=== PATIENT | female | born 1985 | race African-American/Black ===

== ENCOUNTER 2016-08-04 17:48 | Inpatient (IN) | payer OTHER ==
[~2016-08-04] VITALS: Ht 172.7 cm; Wt 101.1 kg
[~2016-08-04 17:48] MED LIST: CHILDREN'S100 MG/5 M PO; IRON325 M1 PO; NO MEDS; NOHOMEMEDS
[2016-08-04 19:16] LABS: INFLUENZA A VIRAL ANTIGEN NEGATIVE; INFLUENZA B VIRAL ANTIGEN NEGATIVE
[2016-08-04 19:56] LABS: HEMATOCRIT 33.9 % (36.0-46.0); MCH 25.5 PG (29.0-34.0); MCV 82.3 FL (83-99); MEAN PLAT.VOLUME 10.1 uM^3 (9.5-12.4); PLATELET COUNT 551 K/uL (156-360); RBC DIS.WIDTH-CV 16.6 % (11.8-14.6); RBC DIS.WIDTH-SD 49.4 % (39-53); RED BLOOD COUNT 4.12 M/uL (3.80-5.20); WHITE BLOOD COUNT 11.8 K/uL (4.1-10.2)
[2016-08-04 19:59] LABS: EOSINOPHIL COUNT 0.2 K/uL (0-0.3); IMMATURE GRANULOCYTE (%) 0.2 % (0.0-0.7); IMMATURE GRANULOCYTE COUNT 0.2 K/uL; LYMPHOCYTE COUNT 1.9 K/uL (1.0-2.8); MONOCYTE (%) 4.9 % (3-12); MONOCYTE COUNT 0.6 K/uL (0-0.8); NEUTROPHIL (%) 76.4 % (45-76)
[2016-08-04 20:09] LABS: D-DIMER ELISA 1.56 mg/L FEU (< 0.57)
[2016-08-04 20:11] LABS: CHLORIDE 111 mEq/L (99-109); POTASSIUM 3.9 mEq/L (3.7-5.4); SODIUM 141 mEq/L (136-147)
[2016-08-04 20:13] LABS: GLUCOSE 118 mg/dL (70-99)
[2016-08-04 20:14] LABS: ANION GAP 7 MEQ/L (2-14)
[2016-08-04 20:17] LABS: GFR ESTIMATE (CALCULATED) > 59 mL/min/; UREA NITROGEN (BUN) 9 mg/dL (9-23)
[2016-08-04 20:25] LABS: QUANTITATIVE HCG < 4.0 MIU/ML
[2016-08-05 01:24] LABS: TROP-I INTERPRETATION NEGATIVE; TROPONIN-I < 0.01 ng/mL (0.0-0.30)
[2016-08-05 03:36] LABS: AMPHETAMINES QUANT VALUE 0 NG/ML; BARBITUATES QUANT VALUE 0 NG/ML; BENZODIAZEPINES QUANT VALUE 0 NG/ML; BENZODIAZEPINES, URINE SCREEN Negative (200 ng/mL); OPIATES QUANTITATIVE VALUE 0 NG/ML; PHENCYCLIDINE QUANT VALUE 0 NG/ML
[2016-08-05 08:01] LABS: INTERNAL CONTROL VALID? YES
[2016-08-05 08:36] LABS: IRON 28 MCG/DL (35-150)
[2016-08-05 08:39] VITALS: BP 110/81
[2016-08-05 08:56] LABS: ANION GAP 8 MEQ/L (2-14); CHLORIDE 109 MEQ/L (99-109); GFR ESTIMATE (CALCULATED) > 59 mL/min/; GLUCOSE 117 mg/dL (70-99); POTASSIUM 4.3 MEQ/L (3.7-5.4); SAMPLE HEMOLYSIS CHECK 0; SAMPLE ICTERIC CHECK 0; SAMPLE LIPEMIA CHECK 0; SODIUM 141 MEQ/L (136-147); UREA NITROGEN (BUN) 10 mg/dL (9-23)
[2016-08-05 09:02] LABS: TROP-I INTERPRETATION NEGATIVE; TROPONIN-I < 0.01 ng/mL (0.0-0.30)
[2016-08-05 09:09] LABS: EOSINOPHIL (%) 0 % (0-5); HEMATOCRIT 33.5 % (36.0-46.0); IMMATURE GRANULOCYTE (%) 0.1 % (0.0-0.7); LYMPHOCYTE COUNT 0.5 K/uL (1.0-2.8); MCH 25.8 PG (29.0-34.0); MCV 83.1 FL (83-99); MEAN PLAT.VOLUME 10.9 uM^3 (9.5-12.4); MONOCYTE (%) 0.6 % (3-12); NEUTROPHIL (%) 92.4 % (45-76); NEUTROPHIL COUNT 6.2 K/uL (1.8-6.4); PLATELET COUNT 524 K/uL (156-360); RBC DIS.WIDTH-CV 16.9 % (11.8-14.6); RBC DIS.WIDTH-SD 51.6 % (39-53); RED BLOOD COUNT 4.03 M/uL (3.80-5.20)
[2016-08-05 09:10] LABS: WHITE BLOOD COUNT 6.7 K/uL (4.1-10.2)
[2016-08-05 09:45] LABS: FERRITIN 12 NG/ML (10-291)
[2016-08-05 11:51] VITALS: BP 119/83
[2016-08-05 13:12] LABS: TROP-I INTERPRETATION NEGATIVE; TROPONIN-I < 0.01 ng/mL (0.0-0.30)
[2016-08-05 15:39] VITALS: BP 120/77
[2016-08-05 20:00] VITALS: BP 120/75
[2016-08-06 00:07] VITALS: BP 107/61
[2016-08-06 04:00] VITALS: BP 122/74
[2016-08-06 07:43] VITALS: BP 107/53
[2016-08-06 08:40] LABS: HEMATOCRIT 29.5 % (36.0-46.0); MCH 25.9 PG (29.0-34.0); MCHC 30.8 G/DL (30.0-36.0); MEAN PLAT.VOLUME 10.4 uM^3 (9.5-12.4); PLATELET COUNT 425 K/uL (156-360); RBC DIS.WIDTH-CV 17.7 % (11.8-14.6); RBC DIS.WIDTH-SD 54.7 % (39-53); RED BLOOD COUNT 3.51 M/uL (3.80-5.20)
[2016-08-06 08:51] LABS: WHITE BLOOD COUNT 9.4 K/uL (4.1-10.2)
[2016-08-06 11:41] VITALS: BP 117/69
[2016-08-06 15:18] VITALS: BP 120/70
[2016-08-06 20:00] VITALS: BP 100/61
[2016-08-07] VITALS (7 sets, daily range): BP systolic 85–112; BP diastolic 51–70
[2016-08-07 04:07] LABS: HEMATOCRIT 35.3 % (36.0-46.0); MCH 25.2 PG (29.0-34.0); MCV 83.8 FL (83-99); MEAN PLAT.VOLUME 10.1 uM^3 (9.5-12.4); PLATELET COUNT 532 K/uL (156-360); RBC DIS.WIDTH-CV 17.2 % (11.8-14.6); RBC DIS.WIDTH-SD 52.3 % (39-53); RED BLOOD COUNT 4.21 M/uL (3.80-5.20); WHITE BLOOD COUNT 9.4 K/uL (4.1-10.2)
[2016-08-07] MEDS ORDERED: PERCOCET 5/31 TABLET PO (11:52)
[2016-08-07] MEDS ORDERED: VALACYCLOVIR (11:53)
[2016-08-08] VITALS: BP 101/67
[2016-08-08 04:00] VITALS: BP 120/78
[2016-08-08 07:38] LABS: HEMATOCRIT 33.5 % (36.0-46.0); MCH 26.1 PG (29.0-34.0); MEAN PLAT.VOLUME 10.1 uM^3 (9.5-12.4); PLATELET COUNT 425 K/uL (156-360); RBC DIS.WIDTH-CV 17.2 % (11.8-14.6); RBC DIS.WIDTH-SD 52.2 % (39-53); RED BLOOD COUNT 3.99 M/uL (3.80-5.20); WHITE BLOOD COUNT 8.5 K/uL (4.1-10.2)
[2016-08-08 08:32] VITALS: BP 85/54
[2016-08-08 09:19] LABS: ANION GAP 6 MEQ/L (2-14); CHLORIDE 106 MEQ/L (99-109); GFR ESTIMATE (CALCULATED) > 59 mL/min/; GLUCOSE 95 mg/dL (70-99); POTASSIUM 4.4 MEQ/L (3.7-5.4); SAMPLE HEMOLYSIS CHECK 0; SAMPLE ICTERIC CHECK 0; SAMPLE LIPEMIA CHECK 0; SODIUM 139 MEQ/L (136-147); UREA NITROGEN (BUN) 20 mg/dL (9-23)
[2016-08-08 12:07] VITALS: BP 108/65
[2016-08-08] MEDS ORDERED: FERROUS SULFAT325 MG PO (13:15)
[2016-08-08] MEDS ORDERED: ENTRESTO 24 MG1 EACH PO (13:15)
[2016-08-08] MEDS ORDERED: CARVEDILOL3.125 MG PO (13:15)
[2016-08-08] MEDS ORDERED: AUGMENTIN875 MG PO (13:18)
[2016-08-08] MEDS ORDERED: AUGMENTIN600 MG/5 M PO (13:49)
== END 2016-08-08 14:57 | disposition home or self-care (01) | DRG 871 ==
LOC: EME 17:48 → EDOF 08-05 00:13 → 5SOUTH 08-05 00:13
PROVIDERS: Hospitalist; Internal Medicine; Physician Assistant; Physician Assistant Medical
DX: A41.9 Sepsis, unspecified organism (principal); J18.9 Pneumonia, unspecified organism; F14.10 Cocaine abuse, uncomplicated; D47.3 Essential (hemorrhagic) thrombocythemia; F17.200 Nicotine dependence, unspecified, uncomplicated; E66.9 Obesity, unspecified; D50.9 Iron deficiency anemia, unspecified; O90.3 Peripartum cardiomyopathy; Z68.33 Body mass index [BMI] 33.0-33.9, adult; I08.1 Rheumatic disorders of both mitral and tricuspid valves; I50.21 Acute systolic (congestive) heart failure
CPT/HCPCS: 71010; 71020; 71275; 80048; 80306 90; 82728; 83540; 83605; 83880; 84466; 84484; 84702; 85025; 85027; 85379; 87040; 87070; 87205; 87449; 87502; 93005; 93306; 94640; 94640 76; 99202; 99281; 99285; J0456; J0696; J1644; J1940; J2930; J7030; J7050

== ENCOUNTER 2016-08-20 01:27 | Inpatient (IN) | payer OTHER ==
[~2016-08-20] VITALS: Ht 172.7 cm; Wt 111.4 kg
[~2016-08-20 01:27] MED LIST changes: +AUGMENTIN600 MG/5 M PO; +AUGMENTIN875 MG PO; +CARVEDILOL3.125 MG PO; +ENTRESTO 24 MG1 EACH PO; +FERROUS SULFAT325 MG PO; +PERCOCET 5/31 TABLET PO; +VALACYCLOVIR
[2016-08-20 02:05] LABS: HEMATOCRIT 29.8 % (36.0-46.0); MCH 25.8 PG (29.0-34.0); MCHC 30.2 G/DL (30.0-36.0); MCV 85.4 FL (83-99); PLATELET COUNT 322 K/uL (156-360); RBC DIS.WIDTH-CV 17.6 % (11.8-14.6); RED BLOOD COUNT 3.49 M/uL (3.80-5.20)
[2016-08-20 02:17] LABS: CHLORIDE 109 mEq/L (99-109); SODIUM 140 mEq/L (136-147)
[2016-08-20 02:19] LABS: GLUCOSE 104 mg/dL (70-99)
[2016-08-20 02:20] LABS: ANION GAP 6 MEQ/L (2-14)
[2016-08-20 02:21] LABS: TOTAL BILIRUBIN 0.2 mg/dL (0.0-1.0)
[2016-08-20 02:22] LABS: ALKALINE PHOSPHATASE 97 IU/L (3-129)
[2016-08-20 02:23] LABS: GFR ESTIMATE (CALCULATED) > 59 mL/min/
[2016-08-20 02:24] LABS: UREA NITROGEN (BUN) 19 mg/dL (9-23)
[2016-08-20 02:26] LABS: TROP-I INTERPRETATION NEGATIVE; TROPONIN-I < 0.01 ng/mL (0.0-0.30)
[2016-08-20] MEDS ORDERED: PERCOCET 5/31 TABLET PO (03:53)
[2016-08-20 04:15] LABS: ADD MIUA? NO; BILIRUBIN NEGATIVE; BLOOD NEGATIVE; COLOR YELLOW ((YELLOW)); GLUCOSE (STRIP) NEGATIVE; KETONES NEGATIVE; LEUKOCYTES NEGATIVE; NITRITE NEGATIVE; PROTEIN (STRIP) NEGATIVE; SPECIFIC GRAVITY 1.018 (1.000-1.030); UCUL ADDED? NO; UROBILINOGEN 0.2 MG/DL (0.2-1.0)
[2016-08-20 04:23] LABS: AMPHETAMINE NEGATIVE (500 ng/mL); BARBITURATES NEGATIVE (200 ng/mL); BENZODIAZEPINES NEGATIVE (150 ng/mL); COCAINE NEGATIVE (150 ng/mL); INTERNAL CONTROLS VALID? YES; METHADONE NEGATIVE (200 ng/mL); METHAMPHETAMINE NEGATIVE (500 ng/mL); OPIATES (MORPHINE) NEGATIVE (100 ng/mL); OXYCODONE PRESUMPTIVE POSITIVE (100 ng/mL); PHENCYCLIDINE NEGATIVE (25 ng/mL); PROPOXYPHENE NEGATIVE (300 ng/mL); THC CANNABINOIDS NEGATIVE (50 ng/mL); TRICYCLIC ANTIDEPRESSANTS NEGATIVE (300 ng/mL)
[2016-08-20 04:58] VITALS: BP 107/66
[2016-08-20 08:10] VITALS: BP 94/60
[2016-08-20 16:03] VITALS: BP 109/70
[2016-08-20 20:30] VITALS: BP 93/57
[2016-08-20 23:46] VITALS: BP 80/46
[2016-08-21 05:46] LABS: HEMATOCRIT 32.6 % (36.0-46.0); MCH 25.3 PG (29.0-34.0); MCHC 30.1 G/DL (30.0-36.0); MCV 84.2 FL (83-99); MEAN PLAT.VOLUME 9.9 uM^3 (9.5-12.4); PLATELET COUNT 284 K/uL (156-360); RBC DIS.WIDTH-CV 17.6 % (11.8-14.6); RED BLOOD COUNT 3.87 M/uL (3.80-5.20); WHITE BLOOD COUNT 6.2 K/uL (4.1-10.2)
[2016-08-21 06:11] LABS: ANION GAP 7 MEQ/L (2-14); CHLORIDE 108 MEQ/L (99-109); GFR ESTIMATE (CALCULATED) > 59 mL/min/; GLUCOSE 84 mg/dL (70-99); MAGNESIUM 1.8 mg/dl (1.3-2.7); SAMPLE HEMOLYSIS CHECK 0; SAMPLE ICTERIC CHECK 0; SAMPLE LIPEMIA CHECK 0; SODIUM 140 MEQ/L (136-147); UREA NITROGEN (BUN) 15 mg/dL (9-23)
[2016-08-21 08:18] VITALS: BP 97/55
[2016-08-21] MEDS ORDERED: ENTRESTO 24 MG1 EACH PO (10:31)
[2016-08-21] MEDS ORDERED: VALTREX50 MG/ML PO (10:32)
[2016-08-21 11:14] VITALS: BP 98/57
[2016-08-21] MEDS ORDERED: LISINOPRIL2.5 MG PO (13:33)
[2016-08-21] MEDS ORDERED: FUROSEMIDE20 MG PO (13:33)
== END 2016-08-21 15:38 | disposition home health service (06) | DRG 776 ==
LOC: EME 01:27 → 3EAST 03:21 → EDOF 03:21 → 3EAST 04:46
PROVIDERS: Internal Medicine; Physician Assistant
DX: O99.43 Diseases of the circulatory system complicating the puerperium (principal); I42.0 Dilated cardiomyopathy; I27.2 Other secondary pulmonary hypertension; I50.9 Heart failure, unspecified; O90.89 Other complications of the puerperium, not elsewhere classified; O99.215 Obesity complicating the puerperium; E66.9 Obesity, unspecified; Z68.37 Body mass index [BMI] 37.0-37.9, adult; O99.335 Smoking (tobacco) complicating the puerperium; O9A.23 Injury, poisoning and certain other consequences of external causes complicating the puerperium; T50.996A Underdosing of other drugs, medicaments and biological substances, initial encounter; Z91.120 Patient's intentional underdosing of medication regimen due to financial hardship; F17.210 Nicotine dependence, cigarettes, uncomplicated
CPT/HCPCS: 71020; 80048; 80053; 81003; 83735; 83880; 84484; 85027; 93005; 99281; 99285; J1940

== ENCOUNTER 2016-09-30 14:38 | Emergency (ER) | payer OTHER ==
[~2016-09-30] VITALS: Ht 170.2 cm; Wt 108.8 kg
[~2016-09-30 14:38] MED LIST changes: +FUROSEMIDE20 MG PO; +LISINOPRIL2.5 MG PO; +VALTREX50 MG/ML PO
[2016-09-30] MEDS ORDERED: NAPROSYN500 MG PO (15:21)
[2016-09-30] MEDS ORDERED: PEN-VEE K,VEET500 MG PO (15:21)
[2016-09-30 15:47] VITALS: BP 116/73
== END 2016-09-30 15:48 | disposition home or self-care (01) ==
LOC: EME 14:38
DX: K04.7 Periapical abscess without sinus (principal); S02.5XXA Fracture of tooth (traumatic), initial encounter for closed fracture; F17.200 Nicotine dependence, unspecified, uncomplicated
CPT/HCPCS: 99281; 99284

== ENCOUNTER 2016-11-02 19:56 | Emergency (ER) | payer OTHER ==
[~2016-11-02] VITALS: Ht 172.7 cm; Wt 114.2 kg
[~2016-11-02 19:56] MED LIST changes: +NAPROSYN500 MG PO; +PEN-VEE K,VEET500 MG PO
[2016-11-02 20:10] VITALS: BP 151/69
== END 2016-11-02 21:31 | disposition left against medical advice (07) ==
LOC: EME 19:56
DX: S93.502A Unspecified sprain of left great toe, initial encounter (principal); W22.8XXA Striking against or struck by other objects, initial encounter; F17.200 Nicotine dependence, unspecified, uncomplicated
CPT/HCPCS: 73660; 99281; 99282

== ENCOUNTER 2016-12-22 13:23 | Emergency (ER) | payer OTHER ==
[~2016-12-22] VITALS: Ht 172.7 cm; Wt 115.3 kg
[2016-12-22 15:29] LABS: MCH 27.1 PG (29.0-34.0); MCHC 30.6 G/DL (30.0-36.0); MCV 88.6 FL (83-99); MEAN PLAT.VOLUME 9.6 uM^3 (9.5-12.4); PLATELET COUNT 240 K/uL (156-360); RBC DIS.WIDTH-CV 14.8 % (11.8-14.6); RBC DIS.WIDTH-SD 48.6 % (39-53); RED BLOOD COUNT 3.95 M/uL (3.80-5.20); WHITE BLOOD COUNT 8.8 K/uL (4.1-10.2)
[2016-12-22 15:37] LABS: CHLORIDE 108 mEq/L (99-109); POTASSIUM 4.6 mEq/L (3.7-5.4); SODIUM 139 mEq/L (136-147)
[2016-12-22 15:39] LABS: GLUCOSE 101 mg/dL (70-99)
[2016-12-22 15:40] LABS: ANION GAP 5 MEQ/L (2-14)
[2016-12-22 15:42] LABS: GFR ESTIMATE (CALCULATED) > 59 mL/min/
[2016-12-22 15:43] LABS: UREA NITROGEN (BUN) 19 mg/dL (9-23)
[2016-12-22 15:50] LABS: QUANTITATIVE HCG < 4.0 MIU/ML
[2016-12-22 16:38] LABS: ADD MIUA? NO; BILIRUBIN NEGATIVE; BLOOD NEGATIVE; COLOR YELLOW ((YELLOW)); GLUCOSE (STRIP) NEGATIVE; KETONES 5; LEUKOCYTES NEGATIVE; NITRITE NEGATIVE; PROTEIN (STRIP) 30; SPECIFIC GRAVITY 1.035 (1.000-1.030); UROBILINOGEN 0.2 MG/DL (0.2-1.0)
[2016-12-22] MEDS ORDERED: FLEXERIL10 MG PO (17:27)
[2016-12-22] MEDS ORDERED: NAPROSYN500 MG PO (17:27)
[2016-12-22] MEDS ORDERED: LIDODERM 5% P1 PATCH TD (17:27)
[2016-12-22 17:28] VITALS: BP 127/85
== END 2016-12-22 17:29 | disposition home or self-care (01) ==
LOC: EME 13:23
PROVIDERS: Nurse Practitioner Family
DX: M54.5 Low back pain (principal); D64.9 Anemia, unspecified; I42.9 Cardiomyopathy, unspecified
CPT/HCPCS: 72100; 80048; 81003; 84702; 85027; 93005; 99281; 99284

== ENCOUNTER 2016-12-24 18:50 | Emergency (ER) | payer OTHER ==
[~2016-12-24] VITALS: Ht 172.7 cm; Wt 113.3 kg
[~2016-12-24 18:50] MED LIST changes: +FLEXERIL10 MG PO; +LIDODERM 5% P1 PATCH TD
[2016-12-24 19:47] VITALS: BP 105/69
[2016-12-24] MEDS ORDERED: BACLOFEN10 MG PO (20:50)
[2016-12-24] MEDS ORDERED: MOTRIN800 MG PO (20:50)
== END 2016-12-24 21:19 | disposition home or self-care (01) ==
LOC: EME 18:50
DX: M54.5 Low back pain (principal); I42.9 Cardiomyopathy, unspecified; F17.200 Nicotine dependence, unspecified, uncomplicated
CPT/HCPCS: 99281; 99283

== ENCOUNTER 2017-09-18 03:11 | Emergency (ER) | payer OTHER ==
[~2017-09-18] VITALS: Ht 172.7 cm; Wt 136.5 kg
[~2017-09-18 03:11] MED LIST changes: +BACLOFEN10 MG PO; +MOTRIN800 MG PO
[2017-09-18 04:55] VITALS: BP 125/77
== END 2017-09-18 04:55 | disposition home or self-care (01) ==
LOC: EME → EDBD 03:11 → EME 04:55
DX: R00.2 Palpitations (principal); I42.9 Cardiomyopathy, unspecified; Z95.810 Presence of automatic (implantable) cardiac defibrillator; I11.0 Hypertensive heart disease with heart failure; I50.9 Heart failure, unspecified; F17.200 Nicotine dependence, unspecified, uncomplicated; Z88.5 Allergy status to narcotic agent; Z88.6 Allergy status to analgesic agent
CPT/HCPCS: 71046; 93005; 99281; 99284

== ENCOUNTER 2017-09-25 00:21 | Emergency (ER) | payer OTHER ==
[~2017-09-25] VITALS: Ht 172.7 cm; Wt 135.9 kg
[2017-09-25 01:08] LABS: BASOPHIL (%) 0.3 % (0-1); EOSINOPHIL (%) 4.2 % (0-5); EOSINOPHIL COUNT 0.4 K/uL (0-0.3); HEMATOCRIT 31.4 % (36.0-46.0); IMMATURE GRANULOCYTE (%) 0.2 % (0.0-0.7); LYMPHOCYTE (%) 22.6 % (15-42); MCH 27.4 PG (29.0-34.0); MCHC 31.8 G/DL (30.0-36.0); MONOCYTE (%) 6.5 % (3-12); MONOCYTE COUNT 0.6 K/uL (0-0.8); NEUTROPHIL (%) 66.2 % (45-76); NEUTROPHIL COUNT 5.9 K/uL (1.8-6.4); PLATELET COUNT 336 K/uL (156-360); RBC DIS.WIDTH-CV 14.8 % (11.8-14.6); RBC DIS.WIDTH-SD 46.9 % (39-53); RED BLOOD COUNT 3.65 M/uL (3.80-5.20)
[2017-09-25 01:23] LABS: ALBUMIN 3.8 g/dL (3.2-4.8); CHLORIDE 107 mEq/L (99-109); POTASSIUM 3.5 mEq/L (3.7-5.4); SODIUM 140 mEq/L (136-147)
[2017-09-25 01:26] LABS: GLUCOSE 109 mg/dL (70-99)
[2017-09-25 01:28] LABS: TOTAL BILIRUBIN 0.2 mg/dL (0.0-1.0)
[2017-09-25 01:29] LABS: ALKALINE PHOSPHATASE 56 IU/L (3-129); CREATININE 0.7 mg/dL (0.6-1.3); GFR ESTIMATE (CALCULATED) > 59 mL/min/
[2017-09-25 01:30] LABS: UREA NITROGEN (BUN) 17 mg/dL (9-23)
[2017-09-25 01:31] LABS: AST (GOT) 11 IU/L (2-34)
[2017-09-25 01:32] LABS: ALT (GPT) 11 IU/L (3-49); CREATINE KINASE 110 IU/L (1-294); TOTAL CK 110 IU/L (1-294)
[2017-09-25 01:35] LABS: TROP-I INTERPRETATION NEGATIVE; TROPONIN-I < 0.01 ng/mL (0.0-0.30)
[2017-09-25 01:40] LABS: QUANTITATIVE HCG < 4.0 MIU/ML
[2017-09-25 01:41] LABS: CK-MB 0.5 ng/mL (0.0-4.9); CKMB RELATIVE INDEX 0.5 (0.0-3.9)
[2017-09-25 03:49] LABS: TROP-I INTERPRETATION NEGATIVE; TROPONIN-I < 0.01 ng/mL (0.0-0.30)
[2017-09-25 04:33] VITALS: BP 106/56
== END 2017-09-25 04:34 | disposition home or self-care (01) ==
LOC: EME → EDBD 00:21 → EME 00:21
PROVIDERS: Emergency Medicine
DX: R07.89 Other chest pain (principal); F41.9 Anxiety disorder, unspecified; E87.6 Hypokalemia; I11.0 Hypertensive heart disease with heart failure; I50.9 Heart failure, unspecified; I42.9 Cardiomyopathy, unspecified; G89.29 Other chronic pain; Z95.810 Presence of automatic (implantable) cardiac defibrillator; F17.200 Nicotine dependence, unspecified, uncomplicated; Z88.5 Allergy status to narcotic agent; Z88.6 Allergy status to analgesic agent
CPT/HCPCS: 71046; 80053; 82550; 82553; 83735; 83880; 84484; 84702; 85025; 93005; 99281; 99284

== ENCOUNTER 2017-11-02 18:18 | Emergency (ER) | payer OTHER ==
[~2017-11-02] VITALS: Ht 175.3 cm; Wt 134.0 kg
[2017-11-02 19:19] LABS: HEMATOCRIT 33.1 % (36.0-46.0); HEMOGLOBIN 10.8 G/DL (11.9-15.5); MCH 27.6 PG (29.0-34.0); MCHC 32.6 G/DL (30.0-36.0); MCV 84.7 FL (83-99); PLATELET COUNT 375 K/uL (156-360); RBC DIS.WIDTH-CV 14.5 % (11.8-14.6); RBC DIS.WIDTH-SD 44.9 % (39-53); RED BLOOD COUNT 3.91 M/uL (3.80-5.20); WHITE BLOOD COUNT 12.6 K/uL (4.1-10.2)
[2017-11-02 19:31] LABS: CHLORIDE 106 mEq/L (99-109); POTASSIUM 3.9 mEq/L (3.7-5.4); SODIUM 139 mEq/L (136-147)
[2017-11-02 19:33] LABS: GLUCOSE 98 mg/dL (70-99)
[2017-11-02 19:34] LABS: TOTAL PROTEIN 7.4 g/dL (6.4-8.3)
[2017-11-02 19:35] LABS: TOTAL BILIRUBIN 0.3 mg/dL (0.0-1.0)
[2017-11-02 19:37] LABS: ALKALINE PHOSPHATASE 49 IU/L (3-129); CREATININE 0.7 mg/dL (0.6-1.3); GFR ESTIMATE (CALCULATED) > 59 mL/min/
[2017-11-02 19:38] LABS: UREA NITROGEN (BUN) 11 mg/dL (9-23)
[2017-11-02 19:39] LABS: AST (GOT) 9 IU/L (2-34)
[2017-11-02 19:40] LABS: ALT (GPT) 8 IU/L (3-49)
[2017-11-02 19:43] LABS: TROP-I INTERPRETATION NEGATIVE; TROPONIN-I < 0.01 ng/mL (0.0-0.30)
[2017-11-02] MEDS ORDERED: VENTOLIN HFA18 GM IH (20:17)
[2017-11-02 20:24] VITALS: BP 121/74
== END 2017-11-02 20:24 | disposition home or self-care (01) ==
LOC: EME 18:18
PROVIDERS: Nurse Practitioner Family
DX: J06.9 Acute upper respiratory infection, unspecified (principal); I50.9 Heart failure, unspecified; F17.200 Nicotine dependence, unspecified, uncomplicated; Z88.5 Allergy status to narcotic agent; Z88.6 Allergy status to analgesic agent
CPT/HCPCS: 71046; 80053; 81003; 83880; 84484; 85027; 93005; 99281; 99284

== ENCOUNTER 2017-12-08 01:57 | Emergency (ER) | payer OTHER ==
[~2017-12-08] VITALS: Ht 172.7 cm; Wt 135.1 kg
[~2017-12-08 01:57] MED LIST changes: +VENTOLIN HFA18 GM IH
[2017-12-08 02:42] LABS: HEMATOCRIT 28.1 % (36.0-46.0); HEMOGLOBIN 9.3 G/DL (11.9-15.5); MCHC 33.1 G/DL (30.0-36.0); MCV 84.6 FL (83-99); PLATELET COUNT 254 K/uL (156-360); RBC DIS.WIDTH-CV 14.2 % (11.8-14.6); RBC DIS.WIDTH-SD 43.8 % (39-53); RED BLOOD COUNT 3.32 M/uL (3.80-5.20); WHITE BLOOD COUNT 11.3 K/uL (4.1-10.2)
[2017-12-08 02:51] LABS: CHLORIDE 106 mEq/L (99-109); POTASSIUM 3.7 mEq/L (3.7-5.4); SODIUM 136 mEq/L (136-147)
[2017-12-08 02:53] LABS: GLUCOSE 101 mg/dL (70-99)
[2017-12-08 02:57] LABS: CREATININE 0.6 mg/dL (0.6-1.3); GFR ESTIMATE (CALCULATED) > 59 mL/min/
[2017-12-08 02:58] LABS: UREA NITROGEN (BUN) 12 mg/dL (9-23)
[2017-12-08 03:05] LABS: TROP-I INTERPRETATION NEGATIVE; TROPONIN-I < 0.01 ng/mL (0.0-0.30)
[2017-12-08 03:13] LABS: MAGNESIUM 1.8 mg/dL (1.3-2.7)
[2017-12-08 04:40] VITALS: BP 129/71
== END 2017-12-08 04:40 | disposition home or self-care (01) ==
LOC: EME 01:57
DX: O99.411 Diseases of the circulatory system complicating pregnancy, first trimester (principal); I42.9 Cardiomyopathy, unspecified; R00.2 Palpitations; Z3A.13 13 weeks gestation of pregnancy; O99.331 Smoking (tobacco) complicating pregnancy, first trimester
CPT/HCPCS: 71046; 80048; 83735; 84484; 85027; 93005; 99281; 99285

== ENCOUNTER 2018-01-01 08:40 | Emergency (ER) | payer OTHER ==
[~2018-01-01] VITALS: Ht 172.7 cm; Wt 136.8 kg
[2018-01-01 09:33] LABS: BASOPHIL (%) 0.2 % (0-1); EOSINOPHIL (%) 0.9 % (0-5); EOSINOPHIL COUNT 0.1 K/uL (0-0.3); HEMATOCRIT 28.6 % (36.0-46.0); IMMATURE GRANULOCYTE (%) 0.4 % (0.0-0.7); LYMPHOCYTE (%) 7.9 % (15-42); LYMPHOCYTE COUNT 0.9 K/uL (1.0-2.8); MCH 27.1 PG (29.0-34.0); MCHC 31.5 G/DL (30.0-36.0); MCV 86.1 FL (83-99); MONOCYTE (%) 2.4 % (3-12); MONOCYTE COUNT 0.3 K/uL (0-0.8); NEUTROPHIL (%) 88.2 % (45-76); NEUTROPHIL COUNT 10.2 K/uL (1.8-6.4); PLATELET COUNT 290 K/uL (156-360); RBC DIS.WIDTH-CV 14.3 % (11.8-14.6); RED BLOOD COUNT 3.32 M/uL (3.80-5.20); WHITE BLOOD COUNT 11.6 K/uL (4.1-10.2)
[2018-01-01 09:45] LABS: CHLORIDE 110 mEq/L (99-109); SODIUM 141 mEq/L (136-147)
[2018-01-01 09:47] LABS: GLUCOSE 107 mg/dL (70-99)
[2018-01-01 09:51] LABS: CREATININE 0.7 mg/dL (0.6-1.3); GFR ESTIMATE (CALCULATED) > 59 mL/min/; UREA NITROGEN (BUN) 10 mg/dL (9-23)
[2018-01-01 14:51] VITALS: BP 122/54
== END 2018-01-01 14:51 | disposition home or self-care (01) ==
LOC: EME 08:40
PROVIDERS: Emergency Medicine
DX: R10.30 Lower abdominal pain, unspecified (principal); O04.6 Delayed or excessive hemorrhage following (induced) termination of pregnancy; D64.9 Anemia, unspecified; I50.9 Heart failure, unspecified; F17.210 Nicotine dependence, cigarettes, uncomplicated; Z97.5 Presence of (intrauterine) contraceptive device; Z71.6 Tobacco abuse counseling; Z88.5 Allergy status to narcotic agent; Z83.3 Family history of diabetes mellitus; Z95.810 Presence of automatic (implantable) cardiac defibrillator
CPT/HCPCS: 71045; 76856; 80048; 85025; 99281; 99285; J2270